=== PATIENT | female | born 1945 | race Hispanic/Latino ===

== ENCOUNTER → 2017-07-07 | Day surgery (SDC) | payer MEDICARE ==
[2017-07-03 10:12] LABS: BASOPHILS # (AUTO) 0.1 (0.0-0.1); BASOPHILS % 0.7 % (0.0-1.0); EOSINOPHILS # (AUTO) 0.1 (0.0-0.4); EOSINOPHILS % 1.7 % (0.0-6.0); HEMATOCRIT 39.5 % (34.2-44.1); HEMOGLOBIN 13.1 g/dL (12.0-16.0); LYMPHOCYTES # (AUTO) 1.8 (1.0-3.2); LYMPHOCYTES % 25.2 % (18.0-39.1); MEAN CORPUSCULAR HGB CONC 33.2 g/dL (31-35); MEAN CORPUSCULAR VOLUME 93.6 fL (81-99); MONOCYTES # (AUTO) 0.6 (0.2-0.8); NEUTROPHILS # (AUTO) 4.5 (2.1-6.9); PLATELET COUNT 244 x10e3/uL (140-360); RED BLOOD COUNT 4.22 x10e6/uL (3.6-5.1); RED CELL DISTRIBUTION WIDTH 14.3 % (11.7-14.4)
[~2017-07-07] MED LIST: ALENDRONATE SOD70 MG PO; AMLODIPINE BESY10 MG PO; CALCIUM600 MG PO; CHLORTHALIDONE50 MG PO; FENTANYL CITRATE/PF 100MCG/2 ML INJ ONE; LOSARTAN-HCTZ1 EAC1 PO; METOPROLOL SUCC50 MG PO; MIDAZOLAM HCL 2 MG/2 ML VIAL ONE; OMEPRAZOLE40 MG PO
--- NOTE | 2017-07-07 22:38 | Operative Report ---
DATE OF PROCEDURE: July 07, 2017 PROCEDURES PERFORMED: 1. Esophagogastroduodenoscopy with biopsies. 2. Colonoscopy with polypectomy. REFERRING PHYSICIAN: Dr. Manuelito Rosales INDICATIONS FOR EGD: History of heartburn, indigestion. INDICATIONS FOR COLONOSCOPY: Colorectal cancer screening. MEDICATION: Patient was done under MAC. Please see anesthesiologist note. PROCEDURE IN DETAIL: With the patient in left lateral decubitus position, the flexible fiberoptic Olympus gastroscope was introduced into the esophagus under direct visualization without any difficulty. There was some patchy erythema noted in the distal esophagus. A minute tongue of velvety red mucosa was noted to extend proximally from the GE junction that was biopsied to rule out Talamantes's. The scope was then advanced with ease into her stomach traversing a small sliding hiatal hernia. Mucosa overlying the antrum and the body revealed some patchy erythema and moderate edema, and biopsies were obtained and sent to stain for H. pylori. Pylorus appeared to be of normal contour and shape. It was intubated with ease, and the scope was advanced all the way to the second portion of the duodenum. The scope was then withdrawn slowly. Mucosa overlying the proximal second portion and the duodenal bulb appeared to be within normal limits. The scope was then withdrawn back into the stomach and retroflexed, and the mucosa overlying the fundus and the cardia appeared to be within normal limits. The scope was then straightened out. The stomach was decompressed. The scope was subsequently withdrawn. Patient tolerated the procedure well. IMPRESSION: 1. Mild distal esophagitis. 2. Rule out Talamantes's esophagus. 3. Small sliding hiatal hernia. 4. Gastritis, biopsied. Biopsies sent to stain for Helicobacter pylori. PLAN: Follow up histology. Initiate Protonix 40 mg 1 p.o. q.a.m. a.c. Patient was then turned around. After adequate lubrication of the anal canal, a flexible fiberoptic Olympus colonoscope was inserted into the rectum with ease and advanced all the way to the cecum. Two minute polyps were hot biopsied from the cecum. One polyp was snared, 1 polyp was hot biopsied from the ascending colon. Some diverticular disease was noted scattered throughout the colon, was primarily in the left colon. The rectum appeared to be within normal limits. The scope was then retroflexed into the distal rectum, and small internal hemorrhoids were noted, none of which was actively bleeding. The scope was then straightened out. The rectosigmoid area as well as the distal rectal area were decompressed. The scope was subsequently withdrawn. Patient tolerated the procedure well. IMPRESSION: 1. Cecal polyps x2, hot biopsied. 2. Ascending colon polyps x2, 1 snared, 1 hot biopsied. 3. Diverticulosis. 4. Internal hemorrhoids, none actively bleeding. PLAN: Follow up histology. Initiate high-fiber, low-fat diet. Initiate high-fiber supplement. Patient will need a followup colonoscopy in 3 years. Job#: [id number] cc:MANUELITO ROSALES MD
== END | disposition home or self-care (01) ==
LOC: OR 05:00
PROVIDERS: ATTEND Internal Medicine Gastroenterology
DX: Z12.11 Encounter for screening for malignant neoplasm of colon (principal); D12.0 Benign neoplasm of cecum; D12.2 Benign neoplasm of ascending colon; K29.70 Gastritis, unspecified, without bleeding; K21.0 Gastro-esophageal reflux disease with esophagitis; K44.9 Diaphragmatic hernia without obstruction or gangrene; K57.30 Diverticulosis of large intestine without perforation or abscess without bleeding; K64.8 Other hemorrhoids; I10 Essential (primary) hypertension; R00.1 Bradycardia, unspecified; R05 Cough; M19.90 Unspecified osteoarthritis, unspecified site; Z01.810 Encounter for preprocedural cardiovascular examination; Z01.812 Encounter for preprocedural laboratory examination; Z68.26 Body mass index [BMI] 26.0-26.9, adult
CPT/HCPCS: 36415; 43239; 45384; 45385; 85025; 88305; 88312; 93005; J2250; 45378

== ENCOUNTER → 2020-07-07 | Outpatient (CLI) | payer MEDICARE ==
[~2020-07-07] MED LIST changes: -FENTANYL CITRATE/PF 100MCG/2 ML INJ ONE; -MIDAZOLAM HCL 2 MG/2 ML VIAL ONE
== END ==
LOC: CARD 10:33
PROVIDERS: ATTEND Internal Medicine
DX: R60.9 Edema, unspecified (principal); I77.1 Stricture of artery; I73.9 Peripheral vascular disease, unspecified; M79.662 Pain in left lower leg; M79.661 Pain in right lower leg
CPT/HCPCS: 93925

== ENCOUNTER 2023-05-21 22:09 | Inpatient (IN) | payer MEDICARE ==
[~2023-05-21] VITALS: Ht 154.9 cm; Wt 74.8 kg
[2023-05-21] MEDS ORDERED: SODIUM CHLORIDE FLUSH 10 ML SYR IV PRN (22:30)
[2023-05-21] MEDS ORDERED: ASPIRIN 81 MG CHEW TAB PO ONE (22:30)
[2023-05-21 22:46] LABS: BASOPHILS % 0.3 % (0.0-1.0); EOSINOPHILS # (AUTO) 0.1 (0.0-0.4); EOSINOPHILS % 0.6 % (0.0-6.0); HEMATOCRIT 39.9 % (34.2-44.1); HEMOGLOBIN 13.2 g/dL (12.0-16.0); LYMPHOCYTES # (AUTO) 0.9 (1.0-3.2); LYMPHOCYTES % 11.2 % (18.0-39.1); MEAN CORPUSCULAR HEMOGLOBIN 30.3 pg (28-32); MEAN CORPUSCULAR HGB CONC 33.1 g/dL (31-35); MEAN CORPUSCULAR VOLUME 91.7 fL (81-99); MONOCYTES # (AUTO) 0.3 (0.2-0.8); MONOCYTES % 4.4 % (4.4-11.3); NEUTROPHILS # (AUTO) 6.4 (2.1-6.9); PLATELET COUNT 153 x10e3/uL (140-360); RED BLOOD COUNT 4.35 x10e6/uL (3.6-5.1); RED CELL DISTRIBUTION WIDTH 15.3 % (11.7-14.4); WHITE BLOOD COUNT 7.71 x10e3/uL (4.8-10.8)
[2023-05-21 23:09] LABS: ALBUMIN 3.2 g/dL (3.5-5.0); ALBUMIN/GLOBULIN RATIO 0.8 (0.8-2.0); ANION GAP 14.9 mmol/L (8-16); CALCIUM 8.5 mg/dL (8.4-10.2); CREATININE, SERUM 0.93 mg/dL (0.57-1.11); POTASSIUM 3.9 mmol/L (3.5-5.1)
[2023-05-21] MEDS ORDERED: IOPAMIDOL 370 MG/ML 100 ML INFUS..BTL INJ ONE (23:42)
[2023-05-22] VITALS (10 sets, daily range): BP systolic 148–170; BP diastolic 50–59; PULSE 60–72; RESP 16–19; TEMP 97.6–99.8; O2SAT 97–100
[2023-05-22] MEDS ORDERED: SODIUM CHLORIDE FLUSH 10 ML SYR INJ PRN (01:00)
[2023-05-22] MEDS ORDERED: ONDANSETRON HCL INJ 2MG/ML 2ML 2 MG/ML VIAL IV PRN (01:00)
[2023-05-22] MEDS ORDERED: FUROSEMIDE INJ 10 MG/ML 4 ML VIAL IV ONE (01:00)
[2023-05-22] MEDS ORDERED: ASPIRIN 81 MG CHEW TAB PO ONE (01:00)
[2023-05-22] MEDS ORDERED: ATORVASTATIN CA20 MG PO (02:39)
[2023-05-22] MEDS ORDERED: CARVEDILOL12.5 MG PO (02:39)
[2023-05-22] MEDS ORDERED: LYRICA50 MG PO (02:39)
[2023-05-22] MEDS ORDERED: VITAMIN D250 MCG PO (02:39)
[2023-05-22] MEDS ORDERED: AMIODARONE HCL200 MG PO (02:39)
[2023-05-22] MEDS ORDERED: LASIX20 MG PO (02:39)
[2023-05-22] MEDS ORDERED: PANTOPRAZOLE SO40 MG PO (02:39)
[2023-05-22] MEDS ORDERED: LEVOTHYROXINE75 MCG PO (02:39)
[2023-05-22] MEDS ORDERED: HYDRALAZINE HC100 MG PO (02:39)
[2023-05-22] MEDS ORDERED: CLOPIDOGREL75 MG PO (02:39)
[2023-05-22] MEDS ORDERED: FUROSEMIDE INJ 10 MG/ML 4 ML VIAL IV SCH ×2 (09:00→12:00)
[2023-05-22] MEDS ORDERED: PREGABALIN 50 MG CAP PO PRN (09:00)
[2023-05-22] MEDS ORDERED: DEXTROSE 50% SYRINGE 50 ML IV PRN (09:00)
[2023-05-22] MEDS: CLOPIDOGREL BISULFATE 75 MG TAB PO SCH (09:43)
[2023-05-22] MEDS: AMIODARONE HCL 200 MG TAB PO SCH (09:43)
[2023-05-22] MEDS: CARVEDILOL 12.5 MG TAB PO SCH ×2 (09:44→17:05)
[2023-05-22] MEDS: PANTOPRAZOLE SOD 40 MG TABEC PO SCH (09:45)
[2023-05-22] MEDS: LOSARTAN POTASSIUM 100 MG TAB PO SCH (09:45)
[2023-05-22] MEDS: POTASSIUM CHLORIDE 10MEQ EA PO SCH (09:45)
[2023-05-22] MEDS: LEVOTHYROXINE SODIUM 75 MCG TAB PO SCH (09:48)
[2023-05-22] MEDS: INSULIN LISPRO 100 UNIT/1 ML 3ML VIAL SQ SCH ×3 (11:30→21:00)
[2023-05-22] MEDS: HYDRALAZINE HCL 25 MG TAB PO SCH ×2 (13:49→21:38)
[2023-05-22] MEDS ORDERED: REGADENOSON 0.4 MG/5 ML SYR IV ONE (14:50)
[2023-05-22] MEDS: BENZONATATE 100 MG CAP PO PRN (21:37)
[2023-05-22] MEDS: MELATONIN 5 MG TABLET PO SCH (21:37)
[2023-05-22] MEDS: ATORVASTATIN 20 MG TAB PO SCH (21:38)
[2023-05-23] VITALS (8 sets, daily range): BP systolic 131–153; BP diastolic 40–57; PULSE 57–70; RESP 16–20; TEMP 98–99.2; O2SAT 92–100
[2023-05-23 05:26] LABS: BASOPHILS % 0.4 % (0.0-1.0); EOSINOPHILS % 0.2 % (0.0-6.0); HEMOGLOBIN 11.6 g/dL (12.0-16.0); LYMPHOCYTES # (AUTO) 1.3 (1.0-3.2); LYMPHOCYTES % 26.1 % (18.0-39.1); MEAN CORPUSCULAR HEMOGLOBIN 29.6 pg (28-32); MEAN CORPUSCULAR HGB CONC 32.2 g/dL (31-35); MEAN CORPUSCULAR VOLUME 91.8 fL (81-99); MONOCYTES # (AUTO) 0.5 (0.2-0.8); MONOCYTES % 9.6 % (4.4-11.3); NEUTROPHILS # (AUTO) 3.1 (2.1-6.9); NEUTROPHILS % 63.5 % (38.7-80.0); PLATELET COUNT 135 x10e3/uL (140-360); RED BLOOD COUNT 3.92 x10e6/uL (3.6-5.1); RED CELL DISTRIBUTION WIDTH 15.5 % (11.7-14.4)
[2023-05-23 05:55] LABS: ALBUMIN 2.7 g/dL (3.5-5.0); ALBUMIN/GLOBULIN RATIO 0.8 (0.8-2.0); ANION GAP 12.8 mmol/L (8-16); CREATININE, SERUM 0.83 mg/dL (0.57-1.11); PHOSPHORUS 3.3 MG/DL (2.3-4.7); POTASSIUM 3.8 mmol/L (3.5-5.1)
[2023-05-23 06:15] LABS: THYROID STIMULATING HORMONE 1.121 uIU/mL (0.350-4.940)
[2023-05-23] MEDS: LEVOTHYROXINE SODIUM 75 MCG TAB PO SCH (06:25)
[2023-05-23] MEDS: INSULIN LISPRO 100 UNIT/1 ML 3ML VIAL SQ SCH ×4 (07:30→20:49)
[2023-05-23] MEDS ORDERED: ONDANSETRON HCL 4 MG ORAL DISINTEGRATING TAB PO PRN (08:45)
[2023-05-23] MEDS: PANTOPRAZOLE SOD 40 MG TABEC PO SCH (09:35)
[2023-05-23] MEDS: CARVEDILOL 12.5 MG TAB PO SCH ×2 (09:35→16:09)
[2023-05-23] MEDS: BENZONATATE 100 MG CAP PO PRN ×2 (09:36→19:04)
[2023-05-23] MEDS: CLOPIDOGREL BISULFATE 75 MG TAB PO SCH (09:36)
[2023-05-23] MEDS: AMIODARONE HCL 200 MG TAB PO SCH (09:36)
[2023-05-23] MEDS: FUROSEMIDE INJ 10 MG/ML 4 ML VIAL IV SCH (09:37)
[2023-05-23] MEDS: HYDRALAZINE HCL 25 MG TAB PO SCH ×3 (09:37→20:49)
[2023-05-23] MEDS: LOSARTAN POTASSIUM 100 MG TAB PO SCH (09:37)
[2023-05-23] MEDS: POTASSIUM CHLORIDE 10MEQ EA PO SCH (09:38)
[2023-05-23] MEDS: ATORVASTATIN 20 MG TAB PO SCH (20:48)
[2023-05-23] MEDS: MELATONIN 5 MG TABLET PO SCH (20:49)
[2023-05-24] VITALS (10 sets, daily range): BP systolic 99–157; BP diastolic 40–60; PULSE 57–94; RESP 16–20; TEMP 97.6–98.7; O2SAT 98–100
[2023-05-24] MEDS: BENZONATATE 100 MG CAP PO PRN ×4 (02:54→21:41)
[2023-05-24] MEDS: LEVOTHYROXINE SODIUM 75 MCG TAB PO SCH (05:33)
[2023-05-24] MEDS: INSULIN LISPRO 100 UNIT/1 ML 3ML VIAL SQ SCH ×4 (07:30→21:00)
[2023-05-24 08:31] LABS: ANION GAP 13.8 mmol/L (8-16); CALCIUM 8.2 mg/dL (8.4-10.2); CREATININE, SERUM 0.85 mg/dL (0.57-1.11); POTASSIUM 3.8 mmol/L (3.5-5.1)
[2023-05-24] MEDS: FUROSEMIDE INJ 10 MG/ML 4 ML VIAL IV SCH (11:01)
[2023-05-24] MEDS: POTASSIUM CHLORIDE 10MEQ EA PO SCH (11:02)
[2023-05-24] MEDS: HYDRALAZINE HCL 25 MG TAB PO SCH ×3 (11:04→21:41)
[2023-05-24] MEDS: CLOPIDOGREL BISULFATE 75 MG TAB PO SCH (11:05)
[2023-05-24] MEDS: LOSARTAN POTASSIUM 100 MG TAB PO SCH (11:05)
[2023-05-24] MEDS: CARVEDILOL 12.5 MG TAB PO SCH ×2 (11:08→16:05)
[2023-05-24] MEDS: AMIODARONE HCL 200 MG TAB PO SCH (11:08)
[2023-05-24] MEDS: PANTOPRAZOLE SOD 40 MG TABEC PO SCH (11:09)
[2023-05-24] MEDS: MELATONIN 5 MG TABLET PO SCH (21:40)
[2023-05-24] MEDS: ATORVASTATIN 20 MG TAB PO SCH (21:41)
[2023-05-25] VITALS: BP 138/50; PULSE 58; RESP 17; TEMP 98.1; O2SAT 98
[2023-05-25 04:00] VITALS: BP 145/45; PULSE 60; RESP 20; TEMP 98.2; O2SAT 100
[2023-05-25] MEDS: LEVOTHYROXINE SODIUM 75 MCG TAB PO SCH (06:32)
[2023-05-25 06:49] LABS: ANION GAP 15.3 mmol/L (8-16); CALCIUM 8.4 mg/dL (8.4-10.2); CREATININE, SERUM 0.85 mg/dL (0.57-1.11); POTASSIUM 4.3 mmol/L (3.5-5.1)
[2023-05-25] MEDS: INSULIN LISPRO 100 UNIT/1 ML 3ML VIAL SQ SCH (07:30)
[2023-05-25 08:18] VITALS: BP 164/54; PULSE 60; RESP 17; TEMP 98.1; O2SAT 97
[2023-05-25 08:19] VITALS: BP 164/54; PULSE 60; RESP 17; TEMP 98.1; O2SAT 97
[2023-05-25 08:30] VITALS: PULSE 67; RESP 16; O2SAT 98
[2023-05-25] MEDS: HYDRALAZINE HCL 25 MG TAB PO SCH (09:00)
[2023-05-25] MEDS: FUROSEMIDE INJ 10 MG/ML 4 ML VIAL IV SCH (09:18)
[2023-05-25] MEDS: POTASSIUM CHLORIDE 10MEQ EA PO SCH (09:18)
[2023-05-25] MEDS: CLOPIDOGREL BISULFATE 75 MG TAB PO SCH (09:18)
[2023-05-25] MEDS: PANTOPRAZOLE SOD 40 MG TABEC PO SCH (09:18)
[2023-05-25 09:19] VITALS: BP 164/54
[2023-05-25] MEDS: LOSARTAN POTASSIUM 100 MG TAB PO SCH (09:19)
[2023-05-25] MEDS: CARVEDILOL 12.5 MG TAB PO SCH (09:19)
[2023-05-25] MEDS: AMIODARONE HCL 200 MG TAB PO SCH (09:20)
== END 2023-05-25 10:34 | disposition home health service (06) | DRG 291 ==
LOC: ER 22:16 → ERHOLD 05-22 00:53 → MED/SURG 05-22 01:33
PROVIDERS: ADMIT Internal Medicine; ATTEND Internal Medicine
DX: I11.0 Hypertensive heart disease with heart failure (principal); I50.33 Acute on chronic diastolic (congestive) heart failure; I73.9 Peripheral vascular disease, unspecified; I65.22 Occlusion and stenosis of left carotid artery; R06.89 Other abnormalities of breathing; R53.81 Other malaise; Z79.890 Hormone replacement therapy; Z79.899 Other long term (current) drug therapy; Z89.611 Acquired absence of right leg above knee; Z20.822 Contact with and (suspected) exposure to COVID-19; G62.9 Polyneuropathy, unspecified; I25.10 Atherosclerotic heart disease of native coronary artery without angina pectoris; I48.0 Paroxysmal atrial fibrillation
CPT/HCPCS: 36415; 71045; 71260; 78452; 80048; 80053; 82550; 82948; 83036; 83735; 83880; 84100; 84443; 84484; 85025; 85379; 87400; 93005; 93017; 93306; 93880; 93925; 94760; 94799; 99284; A9502; J1940; Q0162; Q9967; U0002